=== PATIENT | female | born 1940 | race Caucasian/White ===

== ENCOUNTER 2016-09-06 19:24 | Inpatient (IN) | payer OTHER, BC ==
[~2016-09-06] VITALS: Ht 163.8 cm; Wt 86.5 kg
[~2016-09-06 19:24] MED LIST: ASPIR-LOW81 MG PO; ASPIRIN325 MG PO; BACTRIM,SEPT1 TABLET PO; CO Q-10200 MG PO; COQ; DILAUDID2 MG PO; FLAGYL500 MG PO; FLOVENT; FLOVENT 44120 INHALA IH; HYDROMORPHONE HC4 MG PO; LISINOPRIL-HCT1 EACH PO; MULTIVITAMIN1 EAC2 PO; NIFEDIPINE ER30 MG PO; PROMETHAZINE HC25 M1 PO; TRAMADOL HCL50 MG PO; TYLENOL EXTRA500 MG PO; TYLENOL REGULA325 MG PO; ULTRAM50 MG PO; VICODIN,LORT1 TABLET PO; ZOFRAN4 MG PO; multi vit
[2016-09-06] MEDS ORDERED: ALENDRONATE SOD35 MG PO (19:51)
[2016-09-06] MEDS ORDERED: AMLODIPINE BESYL5 MG PO (19:51)
[2016-09-06] MEDS ORDERED: LO-DOSE ASPIRIN81 M2 PO (19:52)
[2016-09-06] MEDS ORDERED: CELECOXIB100 MG PO (19:53)
[2016-09-06] MEDS ORDERED: GABAPENTIN100 MG PO (19:54)
[2016-09-06] MEDS ORDERED: TRAMADOL HCL50 MG PO (19:55)
[2016-09-06] MEDS ORDERED: TYLENOL EXTRA500 MG PO (19:56)
[2016-09-06 20:10] LABS: EOSINOPHIL (%) 0 % (0-5); IMMATURE GRANULOCYTE (%) 0.4 % (0.0-0.7); IMMATURE GRANULOCYTE COUNT 0.1 K/uL; INSTRUMENT ABS NEUTROPHIL CT 13.3 K/uL; LYMPHOCYTE COUNT 0.5 K/uL (1.0-2.8); MCH 31.6 PG (29.0-34.0); MCHC 33.5 G/DL (30.0-36.0); MCV 94.1 FL (83-99); MEAN PLAT.VOLUME 10.8 uM^3 (9.5-12.4); MONOCYTE (%) 13.2 % (3-12); MONOCYTE COUNT 2.1 K/uL (0-0.8); NEUTROPHIL (%) 83.1 % (45-76); NEUTROPHIL COUNT 13.3 K/uL (1.8-6.4); PLATELET COUNT 196 K/uL (156-360); RBC DIS.WIDTH-CV 12.9 % (11.8-14.6); RBC DIS.WIDTH-SD 44.8 % (39-53); RED BLOOD COUNT 3.93 M/uL (3.80-5.20)
[2016-09-06 20:20] LABS: CHLORIDE 102 mEq/L (99-109); POTASSIUM 3.7 mEq/L (3.7-5.4); SODIUM 136 mEq/L (136-147)
[2016-09-06 20:23] LABS: GLUCOSE 170 mg/dL (70-99)
[2016-09-06 20:24] LABS: ANION GAP 12 MEQ/L (2-14)
[2016-09-06 20:25] LABS: TOTAL BILIRUBIN 1.1 mg/dL (0.0-1.0)
[2016-09-06 20:26] LABS: ALKALINE PHOSPHATASE 144 IU/L (3-129); GFR ESTIMATE (CALCULATED) 34 mL/min/
[2016-09-06 20:27] LABS: UREA NITROGEN (BUN) 24 mg/dL (9-23)
[2016-09-06 20:30] LABS: LIPASE 5 U/L (1.0-51.0)
[2016-09-06 22:47] LABS: ADD MIUA? YES; BILIRUBIN NEGATIVE; BLOOD SMALL; COLOR AMBER ((YELLOW)); GLUCOSE (STRIP) NEGATIVE; KETONES 5; LEUKOCYTES LARGE; NITRITE NEGATIVE; PROTEIN (STRIP) 100; SPECIFIC GRAVITY 1.025 (1.000-1.030); UROBILINOGEN 0.2 MG/DL (0.2-1.0)
[2016-09-06 22:59] LABS: BACTERIA NONE SEEN /HPF; EPITHELIAL CELLS 1+ /HPF; HYALINE CASTS 0-5 /LPF; MUCUS 1+ /LPF; WHITE BLOOD CELLS TNTC /HPF (0-5)
[2016-09-07] VITALS (7 sets, daily range): BP systolic 96–138; BP diastolic 51–73
[2016-09-07 15:58] LABS: CHLORIDE 107 mEq/L (99-109); POTASSIUM 3.7 mEq/L (3.7-5.4); SODIUM 138 mEq/L (136-147)
[2016-09-07 16:01] LABS: ANION GAP 10 MEQ/L (2-14)
[2016-09-07 16:04] LABS: GFR ESTIMATE (CALCULATED) 47 mL/min/
[2016-09-07 16:05] LABS: UREA NITROGEN (BUN) 18 mg/dL (9-23)
[2016-09-07 16:06] LABS: GLUCOSE 96 mg/dL (70-99)
[2016-09-08 06:57] LABS: EOSINOPHIL (%) 0.4 % (0-5); HEMATOCRIT 31.5 % (36.0-46.0); IMMATURE GRANULOCYTE (%) 0.4 % (0.0-0.7); INSTRUMENT ABS NEUTROPHIL CT 5.7 K/uL; LYMPHOCYTE COUNT 1.4 K/uL (1.0-2.8); MCH 31.4 PG (29.0-34.0); MCV 95.2 FL (83-99); MEAN PLAT.VOLUME 11.4 uM^3 (9.5-12.4); MONOCYTE (%) 14.4 % (3-12); MONOCYTE COUNT 1.2 K/uL (0-0.8); NEUTROPHIL (%) 68.5 % (45-76); NEUTROPHIL COUNT 5.7 K/uL (1.8-6.4); PLATELET COUNT 183 K/uL (156-360); RBC DIS.WIDTH-CV 13.2 % (11.8-14.6); RBC DIS.WIDTH-SD 46.2 % (39-53); RED BLOOD COUNT 3.31 M/uL (3.80-5.20)
[2016-09-08 07:10] VITALS: BP 120/64
[2016-09-08 07:21] LABS: WHITE BLOOD COUNT 8.3 K/uL (4.1-10.2)
[2016-09-08 07:22] LABS: ANION GAP 10 MEQ/L (2-14); CHLORIDE 105 MEQ/L (99-109); GFR ESTIMATE (CALCULATED) 47 mL/min/; GLUCOSE 125 mg/dL (70-99); POTASSIUM 3.5 MEQ/L (3.7-5.4); SAMPLE HEMOLYSIS CHECK 0; SAMPLE ICTERIC CHECK 0; SAMPLE LIPEMIA CHECK 0; SODIUM 138 MEQ/L (136-147); UREA NITROGEN (BUN) 17 mg/dL (9-23)
[2016-09-08] MEDS ORDERED: CIPRO500 MG PO (10:58)
== END 2016-09-08 11:53 | disposition home or self-care (01) | DRG 690 ==
LOC: EME 19:24 → EDOF 09-07 00:13 → 2EASTP 09-07 00:56
PROVIDERS: Hospitalist; Internal Medicine; Physician Assistant
DX: N10 Acute pyelonephritis (principal); R78.81 Bacteremia; E11.65 Type 2 diabetes mellitus with hyperglycemia; G89.29 Other chronic pain; I10 Essential (primary) hypertension; E78.5 Hyperlipidemia, unspecified; D72.829 Elevated white blood cell count, unspecified; R11.2 Nausea with vomiting, unspecified; E86.0 Dehydration; Z88.6 Allergy status to analgesic agent; Z88.8 Allergy status to other drugs, medicaments and biological substances; N20.0 Calculus of kidney; M79.7 Fibromyalgia
CPT/HCPCS: 74176; 80048; 80053; 81003; 83605; 83690; 85025; 87040; 87077; 87086; 87186; 87801; 99281; 99285; J0696; J1644; J1885; J2405; J7030; J7050